=== PATIENT | male | born 1940 | race African-American/Black ===

== ENCOUNTER 2021-07-18 12:38 | Emergency (ER) | payer MEDICARE ==
[2021-07-18 12:46] VITALS: TEMP 98.3
--- NOTE | 2021-07-18 13:17 | ED ---
General Adult HPI - General Source: patient Mode of arrival: wheelchair Limitations: no limitations <Timmy Reese - Last Filed: 07/18/21 15:00> <Howie Da Silva - Last Filed: 07/19/21 00:31> - General Chief complaint: Chest Pain Stated complaint: Chest Pain Time Seen by Provider: 07/18/21 12:54 - History of Present Illness Initial comments: Dictation was produced using [employer] dictation software. please excuse any grammatical, word or spelling errors. Chief Complaint: 81-year-old male presents today with 2 days of chest pain History of Present Illness: She is a 1-year-old male presents to the emergency department today for chest pain. Patient states his pain is to his left anterior chest. States it's like a soreness. Patient reports that's worse when he lifts his arm up however it's there whenever he is at rest. No radiation down his extremity. No associate diaphoresis or nausea. Patient has extensive history of coronary artery disease. The ROS documented in this emergency department record has been reviewed and confirmed by me. Those systems with pertinent positive or negative responses have been documented in the HPI. All other systems are other negative and/or noncontributory. PHYSICAL EXAM: General Impression: Alert and oriented x3, not in acute distress HEENT: Normocephalic atraumatic, extra-ocular movements intact, pupils equal and reactive to light bilaterally, mucous membranes moist. Cardiovascular: Heart regular rate and rhythm Chest: Able to complete full sentences, no retractions, no tachypnea, pain not reproduced with palpation to the chest Abdomen: abdomen soft, non-tender, non-distended, no organomegaly Musculoskeletal: Pulses present and equal in all extremities, no peripheral edema Motor: no focal deficits noted Neurological: CN II-XII grossly intact, no focal motor or sensory deficits noted Skin: Intact with no visualized rashes Psych: Normal affect and mood ED course: 81-year-old male clinical presentation consistent with atypical chest pain with typical features. Vital signs upon arrival are within acceptable limits. EKG shows no signs of ischemia or infarction. Shoulder x-ray is unremarkable. Laboratory evaluation obtained. CBC and metabolic panel is unremarkable. Troponin is negative. EKG interpretation: Ventricular rate 52, sinus bradycardia, TN interval 154, QRS 70, QTc 43. No TN prolongation, no QTC prolongation, no ST or T-wave changes noted. Overall, this EKG is unremarkable Disposition options were discussed. She did not want to be admitted to observation for cardiac monitoring. Patient is agreeable for second troponin time at 4:15. Patient will be signed out to Dr. Da Silva. (Timmy Reese) - Related Data Home Medications Medication Instructions Recorded Confirmed cycloSPORINE [Restasis] 1 drop BOTH EYES BID 03/04/15 07/18/21 hydrALAZINE HCL [Apresoline] 50 mg PO BID 01/22/16 07/18/21 Ezetimibe [Zetia] 10 mg PO DAILY 07/18/21 07/18/21 HYDROcodone/APAP 7.5-325MG [[place] 1 tab PO Q12H PRN 07/18/21 07/18/21 7.5-325] timoloL maleate [timoloL maleate 1 drop BOTH EYES DAILY 07/18/21 07/18/21 0.5% Gel] Previous Rx's Medication Instructions Recorded Methocarbamol [Robaxin-750] 1,500 mg PO TID PRN 7 Days #42 07/18/21 tablet Allergies Allergy/AdvReac Type Severity Reaction Status Date / Time No Known Allergies Allergy Verified 07/18/21 13:46 Review of Systems ROS Other: All systems not noted in ROS Statement are negative. <Timmy Reese - Last Filed: 07/18/21 15:00> ROS Other: All systems not noted in ROS Statement are negative. <Howie Da Silva - Last Filed: 07/19/21 00:31> ROS Statement: Those systems with pertinent positive or pertinent negative responses have been documented in the HPI. Past Medical History Past Medical History: Coronary Artery Disease (CAD), Eye Disorder, Hypertension Additional Past Medical History / Comment(s): hiatal hernia, glaucoma History of Any Multi-Drug Resistant Organisms: None Reported Past Surgical History: Back Surgery, Bowel Resection, Coronary Bypass/CABG, Heart Catheterization, Hernia Repair Additional Past Surgical History / Comment(s): cataracts, back surgery x 3, 5-11-15 HEART CATH. Bowel resection for rupture Past Anesthesia/Blood Transfusion Reactions: No Reported Reaction Past Psychological History: No Psychological Hx Reported Smoking Status: Never smoker Past Alcohol Use History: None Reported Past Drug Use History: None Reported - Past Family History Father Family Medical History: Deep Vein Thrombosis (DVT) <Timmy Reese - Last Filed: 07/18/21 15:00> General Exam Limitations: no limitations <Timmy Reese - Last Filed: 07/18/21 15:00> Course Vital Signs 07/18/21 07/18/21 07/18/21 12:43 13:00 14:00 Temperature 98.3 F Pulse Rate 54 L 50 L 49 L Respiratory 20 18 18 Rate Blood Pressure 174/74 163/78 162/74 O2 Sat by Pulse 98 99 99 Oximetry 07/18/21 07/18/21 15:00 17:38 Temperature Pulse Rate 53 L 50 L Respiratory 18 18 Rate Blood Pressure 152/78 163/68 O2 Sat by Pulse 100 99 Oximetry Medical Decision Making - Lab Data Result diagrams: 07/18/21 13:17 07/18/21 13:17 <Timmy Reese - Last Filed: 07/18/21 15:00> - Lab Data Result diagrams: 07/18/21 13:17 07/18/21 13:17 <Howie Da Silva - Last Filed: 07/19/21 00:31> - Medical Decision Making Patient is signed out to me pending results of the second troponin. Patient's obtaining cardiac workup presented originally with chest pain and left arm pain 2 days. Initial cardiac workup revealed a negative troponin. Remainder the laboratory studies are unremarkable. EKG showed no signs of acute ischemia per prior physician. X-rays the shoulder and of the chest revealed no acute injury. Chest x-ray also revealed no acute cardiopulmonary process. Patient was stable for multiple hours in the department. He discussed with the patient that he can be admitted for cardiac evaluation or stay for a second troponin. He would like to remain in the department for second troponin discharged home at that is within normal limits. Troponin returned and it was negative. I evaluated the patient and he states his symptoms are somewhat improved. He is already on [place] at home for pain management. Due to his negative workup including 2 negat kiara troponins, I do believe it is safer to be discharged home at this time. He is I instructed him follow up with his PCP. He was in agreement this plan. I will provide the patient with a prescription for Robaxin. I instructed the patient to follow up with their PCP in the next 3 days. I explained that the patient should return to the emergency department if they experience any wor sening symptoms. Strict return precautions were discussed with the patient. The patient expressed understanding of these instructions. I answered all questions that the patient had. The patient was discharged home in fair condition with their prescriptions and follow up information. (Howie Da Silva) - Lab Data Lab Results 07/18/21 07/18/21 07/18/21 Range/Units 13:17 13:17 13:17 WBC 8.3 (3.8-10.6) k/uL RBC 4.54 (4.30-5.90) m/uL Hgb 12.9 L (13.0-17.5) gm/dL Hct 40.5 (39.0-53.0) % MCV 89.1 (80.0-100.0) fL MCH 28.4 (25.0-35.0) pg MCHC 31.9 (31.0-37.0) g/dL RDW 13.6 (11.5-15.5) % Plt Count 166 (150-450) k/uL MPV 8.3 Neutrophils % 73 % Lymphocytes % 13 % Monocytes % 10 % Eosinophils % 2 % Basophils % 0 % Neutrophils # 6.1 (1.3-7.7) k/uL Lymphocytes # 1.1 (1.0-4.8) k/uL Monocytes # 0.8 (0-1.0) k/uL Eosinophils # 0.1 (0-0.7) k/uL Basophils # 0.0 (0-0.2) k/uL Sodium 138 (137-145) mmol/L Potassium 4.3 (3.5-5.1) mmol/L Chloride 106 (98-107) mmol/L Carbon Dioxide 26 (22-30) mmol/L Anion Gap 6 mmol/L BUN 12 (9-20) mg/dL Creatinine 0.80 (0.66-1.25) mg/dL Est GFR (CKD-EPI)AfAm >90 (>60 ml/min/1.73 sqM) Est GFR (CKD-EPI)NonAf 84 (>60 ml/min/1.73 sqM) Glucose 120 H (74-99) mg/dL Calcium 9.3 (8.4-10.2) mg/dL Troponin I <0.012 (0.000-0.034) ng/mL 07/18/21 Range/Units 16:27 WBC (3.8-10.6) k/uL RBC (4.30-5.90) m/uL Hgb (13.0-17.5) gm/dL Hct (39.0-53.0) % MCV (80.0-100.0) fL MCH (25.0-35.0) pg MCHC (31.0-37.0) g/dL RDW (11.5-15.5) % Plt Count (150-450) k/uL MPV Neutrophils % % Lymphocytes % % Monocytes % % Eosinophils % % Basophils % % Neutrophils # (1.3-7.7) k/uL Lymphocytes # (1.0-4.8) k/uL Monocytes # (0-1.0) k/uL Eosinophils # (0-0.7) k/uL Basophils # (0-0.2) k/uL Sodium (137-145) mmol/L Potassium (3.5-5.1) mmol/L Chloride (98-107) mmol/L Carbon Dioxide (22-30) mmol/L Anion Gap mmol/L BUN (9-20) mg/dL Creatinine (0.66-1.25) mg/dL Est GFR (CKD-EPI)AfAm (>60 ml/min/1.73 sqM) Est GFR (CKD-EPI)NonAf (>60 ml/min/1.73 sqM) Glucose (74-99) mg/dL Calcium (8.4-10.2) mg/dL Troponin I <0.012 (0.000-0.034) ng/mL Disposition <Timmy Reese - Last Filed: 07/18/21 15:00> Is patient prescribed a controlled substance at d/c from ED?: No <Howie Da Silva - Last Filed: 07/19/21 00:31> Clinical Impression: Chest pain of unknown etiology Disposition: HOME SELF-CARE Condition: Fair Instructions (If sedation given, give patient instructions): Chest Pain (ED) Prescriptions: Methocarbamol [Robaxin-750] 1,500 mg PO TID PRN 7 Days #42 tablet PRN Reason: Pain Referrals: Jeb Reagan MD [Primary Care Provider] - 1-2 days
[2021-07-18 13:30] LABS: Basophils % (A) 0 %; Eosinophils # (A) 0.1 k/uL (0-0.7); Eosinophils % (A) 2 %; HCT 40.5 % (39.0-53.0); HGB 12.9 gm/dL (13.0-17.5); Lymphocytes # (A) 1.1 k/uL (1.0-4.8); Lymphocytes % (A) 13 %; MCH 28.4 pg (25.0-35.0); MCHC 31.9 g/dL (31.0-37.0); MCV 89.1 fL (80.0-100.0); Mean Platelet Volume 8.3; Monocytes # (A) 0.8 k/uL (0-1.0); Monocytes % (A) 10 %; Neutrophils # (A) 6.1 k/uL (1.3-7.7); Neutrophils % (A) 73 %; Platelet Count 166 k/uL (150-450); RBC 4.54 m/uL (4.30-5.90); RDW 13.6 % (11.5-15.5); WBC 8.3 k/uL (3.8-10.6)
--- NOTE | 2021-07-18 13:33 | XR ---
EXAMINATION TYPE: XR chest 2V DATE OF EXAM: 07/18/2021 COMPARISON: 03/11/15 HISTORY: Shortness of breath TECHNIQUE: Frontal and lateral views of the chest are obtained. FINDINGS: Scattered senescent parenchymal changes noted. Hyperinflation compatible with COPD. No evidence for infiltrate. No evidence for atelectasis. Heart size is stable. Mediastinal structures are stable and grossly unremarkable. No evidence for hilar prominence. Degenerative changes dorsal spine. IMPRESSION: 1. No evidence for acute pulmonary disease.
[2021-07-18 13:50] LABS: African American GFR (CKD) >90 (>60 ml/min/1.73 sqM); Anion Gap 6 mmol/L; Blood Urea Nitrogen 12 mg/dL (9-20); Calcium 9.3 mg/dL (8.4-10.2); Carbon Dioxide 26 mmol/L (22-30); Chloride 106 mmol/L (98-107); Glucose 120 mg/dL (74-99); Non-African American GFR(CKD) 84 (>60 ml/min/1.73 sqM); Potassium 4.3 mmol/L (3.5-5.1); Sodium 138 mmol/L (137-145)
--- NOTE | 2021-07-18 14:28 | XR ---
EXAMINATION TYPE: XR shoulder complete LT DATE OF EXAM: 07/18/2021 CLINICAL HISTORY: pain COMPARISON: NONE TECHNIQUE: Three views of the left shoulder are obtained. FINDINGS: There is no acute fracture/dislocation evident. The acromioclavicular and glenohumeral edward int spaces appear within normal limits. The visualized ribs are intact and unremarkable. IMPRESSION: 1. There is no acute fracture or dislocation. ICD 10 NO FRACTURE, INITIAL EVALUATION
[2021-07-18 15:40] VITALS: RESP 18
[2021-07-18 17:41] VITALS: BP 163/68; PULSE 50
== END 2021-07-18 17:40 | disposition home or self-care (01) ==
LOC: EC 12:38
DX: R07.89 Other chest pain (principal); I10 Essential (primary) hypertension; Z79.899 Other long term (current) drug therapy
CPT/HCPCS: 36415; 71046; 80048; 84484; 85025; 93005; 99285

== ENCOUNTER → 2022-03-06 | Outpatient (CLI) | payer MEDICARE ==
--- NOTE | 2022-03-09 08:47 | MR ---
EXAMINATION TYPE: MR Prostate wo/w con DATE OF EXAM: 03/06/2022 COMPARISON: None. 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 Approxima tely 5% of tissue measuring less than 1 mm in length. TECHNIQUE: Examination was performed using a 3T MRI without an endorectal coil. Multiparametric imaging was perf ormed with T2 mutliplanar sequences, axial diffusion weighted imaging and dynamic contrast enhanced i maging, utilizing 7.5 mL intravenous Gadavist gadolinium contrast. FINDINGS: Exam is suboptimal PROSTATE VOLUME: 5.2 cm SI x 3.7 cm AP x 5.5 cm LR Vol= 55.4 cc Predicted PSA equals 6.648 PSA DENSITY: 0.13 ng/ml/cc Enlarged prostate gland is present. The peripheral zone shows no areas of significant diminished sign al and ADC mapping or increased signal on diffusion-weighted imaging. Linear increased T1 signal in t he right peripheral zone mid segment towards apex axial image 18 is favored artifact. T2-weighted sheila ges fairly unremarkable. Transitional zone shows marked heterogeneity with more heterogeneous diminis hed signal having obscured margins throughout the right aspect of the prostate versus left side invol ving the mid and apical segments and the anterior central and posterior levels. No significant increa sed signal or restricted diffusion on diffusion-weighted imaging. Capsule is maintained. Seminal vesicles are within normal limits. Urinary bladder shows no intralumin al mass or wall thickening. No pelvic ascites. Visualized osseous structures are intact. Moderate wal l thickening in the visualized sigmoid colon is nonspecific finding, could be product of poor distent ion. Other etiologies not excluded. Correlate clinically. IMPRESSION: Enlarged prostate. Nonspecific findings in the right prostate transitional zone.. Highest Assessment Category: 3 MRI Stage: T1c N0 M0 based on review of pelvic images. False negative rates for MRI range from 5-20% depending on risk profile. Assessment Categories: 1 ? Very low (clinically significant cancer is highly unlikely to be present) 2 ? Low (clinically significant cancer is unlikely to be present) 3 ? Intermediate (the presence of clinically significant cancer is equivocal) 4 ? High (clinically significant cancer is likely to be present) 5 ? Very high (clinically significant cancer is highly likely to be present)
== END | disposition home or self-care (01) ==
LOC: RADMRIMAIN 07:45
PROVIDERS: ATTEND Urology
DX: C61 Malignant neoplasm of prostate (principal)
CPT/HCPCS: 72197; A9585

== ENCOUNTER → 2023-04-22 | Outpatient (CLI) | payer MEDICARE ==
[2023-04-22 14:39] VITALS: BP 173/78; PULSE 55; RESP 18; TEMP 98
--- NOTE | 2023-04-22 15:28 | P.PAINPG ---
PQRS Measure Charge Sheet Comment: HISTORY OF PRESENT ILLNESS: 82 yr old male as a referral from Dr Russ presents today w severe and chronic LBP secondary to R Sacroiliitis for evaluation. Pt states pain level is provoked at 6 /10 in intensity, constant, localized in the R lower lumbar spine, sharp in character w shooting pain towards the R buttocks. Pain is provoked by repositioning. Pain is alleviated by massage weekly x 4 wks in Mar 2023, heat, ice, medications ([place]) and rest. Oswetry Pain Score of 14. PMH: OA, CAD, Eye Disorder, HTN, Hiatal Hernia, Glaucoma PSH: Hiatal Hernia Repair, Lumbar Surgery x3, Cardiac Cath (2014) SH: 26 pack/ yr former tobacco user (Quit 1985), No ETOH abuse, No illicit drug use FH: Fa- DVT All: See list Meds: See list REVIEW OF ORGAN SYSTEMS: CONSTITUTIONAL: No fevers or chills. No recent weight loss. NEUROLOGICAL: + numbness and tingling along the distal extremities. No seizure disorders or headaches. MUSCULOSKELETAL: + pain PSYCHIATRIC: Denies current depression or suicidal thoughts. Physical Examinations : Constitutional : Cooperative , not in acute distress . Neurologic : Cranial nerve II to XII intact. No focal neurological deficits. Psychiatric : alert & oriented x 3. Matching mood & appropriate affect. Judgment & insight intact. Musculoskeletal : Cervical Spine Motor strength in the deltoid and biceps: Normal right side. Normal Left side Motor strength biceps and the wrist extensors: Normal right side . Normal left side Motor strength in the triceps muscle: Normal right side. Normal left side Deep tendon reflexes: Normal at the biceps. Normal at Brachioradialis. Normal at triceps Vertebral body tenderness to deep palpation over Cervical facet loading test: positive bilaterally Spurling test: positive bilaterally Neck distraction test: positive bilaterally Bruce sign: positive bilaterally Lumbar spine Motor strength lower extremities ,thigh and legs 5/5 Right side , 5/5 Left side Deep tendon reflexes : Normal Knee Jerk. Normal Ankle Jerk Vertebral body tenderness over Gabriel Test positive Lumbar facet Loading Test: positive Right / positive Left Range of motion of the lumbar spine Flexion 30 degrees, extension 10 degrees Straight Leg Raise test: Left/ Right positive at degree Renetta test: positive right / positive left. Severe tenderness over the Sacroiliac joint on the Right / Left sides Gaenslen test: positive on R Seated flexion test: positive bilaterally. Sacral spine : Severe tenderness over the Sacroiliac joint: right side / left side Range of motion: Flexion of the lumbar spine <60 degrees Range of motion: Extension of the lumbar spine <20 degrees Gaenslen's Test on R Renetta test: positive right side / left side R positive Thigh Thrust Test Sacral Thrust Test Imaging: None on file Assessment/ Plan : R Sacroiliitis Recommendation of R SI injection. May need a series for optimal pain relief. Risks, benefits of procedure discussed and patient verbalized understanding. Admits to aspirin or anti- coagulant use or medical history of diabetes. Protocol for discontinuation/ continuation of medications roberto procedure discussed. Minimal anesthesia provided, if clinically indicated, consisting of Versed and Fentanyl. All questions answered. I have spent greater than 30 minutes on patient care today. Dr Badillo was available by phone for the evaluation of this patient. The time was used to review the medical records including relevant urine studies and Prescription history (MAPs), review of the available imaging, evaluation and examination of the patient, coordination of care with the medical staff and if applicable referring physicians, as well as creation of the medical record PQRS Narrative: Smoking Status Former smoker Home Medications: Ambulatory Orders cycloSPORINE [Restasis] 1 drop BOTH EYES BID 03/04/15 hydrALAZINE HCL [Apresoline] 50 mg PO BID 01/22/16 Ezetimibe [Zetia] 10 mg PO DAILY 07/18/21 HYDROcodone/APAP 7.5-325MG [[place] 7.5-325] 1 tab PO Q12H PRN 07/18/21 methocarbamoL [Robaxin-750] 1,500 mg PO TID PRN 7 Days #42 tablet 07/18/21 timoloL maleate [timoloL maleate 0.5% Gel] 1 drop BOTH EYES DAILY 07/18/21 Controlled Substance Measures - Controlled Substance Measures Is patient prescribed a controlled substance at discharge?: No
== END ==
LOC: PNWHC3 12:48
PROVIDERS: ATTEND Specialist
DX: M46.1 Sacroiliitis, not elsewhere classified (principal); G89.29 Other chronic pain; M19.90 Unspecified osteoarthritis, unspecified site; I25.10 Atherosclerotic heart disease of native coronary artery without angina pectoris; I10 Essential (primary) hypertension; Z86.69 Personal history of other diseases of the nervous system and sense organs; Z87.19 Personal history of other diseases of the digestive system; Z87.891 Personal history of nicotine dependence
CPT/HCPCS: 99211

== ENCOUNTER → 2023-06-03 | Outpatient (CLI) | payer MEDICARE ==
[2023-06-03 13:23] VITALS: BP 171/78; PULSE 49; RESP 16; TEMP 97.7
--- NOTE | 2023-06-03 14:34 | P.PAINPG ---
PQRS Measure Charge Sheet Comment: HISTORY OF PRESENT ILLNESS: 82 yr old male presents today w severe and chronic LBP secondary to R Sacroiliitis for evaluation s/p R SI injection. Pt states he experienced 0% pain relief s/p procedure. Pt states pain level is provoked at 6 /10 in intensity, constant, localized in the R lower lumbar spine, sharp in character w shooting pain towards the R buttocks. Pain is provoked by repositioning. Pain is alleviated by massage weekly x 4 wks in Mar 2023, heat, ice, medications ([place]) and rest. Oswestry Pain Score of 14. Interventional procedures include R SI x1 Medications include [place] REVIEW OF ORGAN SYSTEMS: CONSTITUTIONAL: No fevers or chills. No recent weight loss. NEUROLOGICAL: + numbness and tingling along the distal extremities. No seizure disorders or headaches. MUSCULOSKELETAL: + pain PSYCHIATRIC: Denies current depression or suicidal thoughts. Physical Examinations : Constitutional : Cooperative , not in acute distress . Neurologic : Cranial nerve II to XII intact. No focal neurological deficits. Psychiatric : alert & oriented x 3. Matching mood & appropriate affect. Judgment & insight intact. Musculoskeletal : Cervical Spine Motor strength in the deltoid and biceps: Normal right side. Normal Left side Motor strength biceps and the wrist extensors: Normal right side . Normal left side Motor strength in the triceps muscle: Normal right side. Normal left side Deep tendon reflexes: Normal at the biceps. Normal at Brachioradialis. Normal at triceps Vertebral body tenderness to deep palpation over Cervical facet loading test: positive bilaterally Spurling test: positive bilaterally Neck distraction test: positive bilaterally Bruce sign: positive bilaterally Lumbar spine Motor strength lower extremities ,thigh and legs 5/5 Right side , 5/5 Left side Deep tendon reflexes : Normal Knee Jerk. Normal Ankle Jerk Vertebral body tenderness over L5 Gabriel Test positive on R L5-S1 Lumbar facet Loading Test: positive Right / positive Left Range of motion of the lumbar spine Flexion 30 degrees, extension 10 degrees Straight Leg Raise test: Left/ Right positive at degree Renetta test: positive right / positive left. Severe tenderness over the Sacroiliac joint on the Right / Left sides Gaenslen test: positive on R Seated flexion test: positive bilaterally. Sacral spine : Severe tenderness over the Sacroiliac joint: right side / left side Range of motion: Flexion of the lumbar spine <60 degrees Range of motion: Extension of the lumbar spine <20 degrees Gaenslen's Test on R Renetta test: positive right side / left side R positive Thigh Thrust Test Sacral Thrust Test Imaging: None on file Assessment/ Plan : R Sacroiliitis, Post laminectomy syndrome Recommendation of R TFESI L5-S1 #1. May need a series for optimal pain relief. Risks, benefits of procedure discussed and patient verbalized understanding. Admits to aspirin or anti- coagulant use or medical history of diabetes. Protocol for discontinuation/ continuation of medications roberto procedure discussed. Minimal anesthesia provided, if clinically indicated, consisting of Versed and Fentanyl. All questions answered. I have spent greater than 30 minutes on patient care today. Dr Badillo was available by phone for the evaluation of this patient. The time was used to review the medical records including relevant urine studies and Prescription history (MAPs), review of the available imaging, evaluation and examination of the patient, coordination of care with the medical staff and if applicable r eferring physicians, as well as creation of the medical record PQRS Narrative: Smoking Status Former smoker Hx Alcohol Use ([facility]) No Home Medications: Ambulatory Orders cycloSPORINE [Restasis] 1 drop BOTH EYES BID 03/04/15 hydrALAZINE HCL [Apresoline] 50 mg PO BID 01/22/16 HYDROcodone/APAP 7.5-325MG [[place] 7.5-325] 1 tab PO Q12H PRN 07/18/21 timoloL maleate [timoloL maleate 0.5% Gel] 1 drop BOTH EYES DAILY 07/18/21 Controlled Substance Measures - Controlled Substance Measures Is patient prescribed a controlled substance at discharge?: No
== END ==
LOC: PNWHC3 12:41
PROVIDERS: ATTEND Specialist
DX: M46.1 Sacroiliitis, not elsewhere classified (principal); M96.1 Postlaminectomy syndrome, not elsewhere classified; Z87.891 Personal history of nicotine dependence
CPT/HCPCS: 99211

== ENCOUNTER 2023-06-22 09:41 | Day surgery (SDC) | payer MEDICARE ==
[2023-06-17 11:01] VITALS: BMI 25.0
[2023-06-22] MEDS ORDERED: LACTATED RINGERS 1,000 ML IV SCH (09:46)
[2023-06-22 09:54] VITALS: PULSE 53; RESP 16; TEMP 97.6
[2023-06-22] MEDS ORDERED: methylPREDNISolone ACETATE 40 MG/ML 1 ML VIAL ONE (10:26)
[2023-06-22] MEDS ORDERED: IOPAMIDOL M200 10 ML VIAL ONE (10:26)
--- NOTE | 2023-06-22 10:42 | P.PCN ---
Date of Procedure: 06/22/23 Procedure(s) Performed: PREOPERATIVE DIAGNOSIS: 1-Lumbar radiculopathy . 2-lumbar postlaminectomy pain syndrome POSTOPERATIVE DIAGNOSIS: 1-lumbar radiculopathy. 2-lumbar postlaminectomy pain syndrome PROCEDURE 1. Transforaminal epidural steroid injection under fluoroscopic guidance at right level. (Fluoroscopy images stored on file in the radiology Department ) 2. Lumbar epidurogram . ANESTHESIA: Local with 1% lidocaine 3 ml. EBL: Minimal PROCEDURE INDICATION: The patient with low back pain and radiculopathy symptoms unresponsive to conservative treatment. PROCEDURE DESCRIPTION / TECHNIQUE: The patient was seen and identified in the preoperative area. Risks, benefits, complications, and alternatives were discussed with the patient. The patient agreed to proceed with the procedure and signed the consent. IV was started, and vital signs were stable. Patient was taken to the OR and time out was completed. The patient was placed in the prone position on procedure table and a pillow was placed under the abdomen to reduce lumbar lordosis. The lumbosacral area was prepped and draped in the usual sterile fashion. Critical pause was taken. Vital signs were closely monitored during the procedure. Using oblique fluoroscopy, the chin of the `BirgitReginald dog at Right L5-S1 level was identified, and the skin and deeper tissues just below was localized with 1% lidocaine. Subsequently, a 22-gauge 3.5-inch spinal needle was advanced under a tunneled view fluoroscopic guidance just underneath the chin of the `Rubyy dog at the right L5-S1 Under lateral fluoroscopy, the needle was then advanced to the posterior border of the interforaminal space. After negative aspiration of CSF and blood and with no paresthesias, 1 mL Isovue 200 contrast dye was injected excellent epidurogram and outlining of the nerve root Subsequently, 3 mL of block solution containing 40 mg Depo-Medrol and 2 mL of 0.9% normal saline PF was injected. Needle was removed . At the end of the procedure, skin was cleansed, and bandages were applied. COMPLICATIONS:none DISPOSITION / PLANS: The patient was placed in a supine position and transferred to the recovery area in a stable condition for observation. There was no evidence of lower extremity motor or sensory deficit after the procedure. Patient was discharged from the recovery room after meeting discharge criteria. Home discharge instructions were given to the patient by the staff. The patient was reexamined prior to discharge.
[2023-06-22 10:45] VITALS: BP 152/66
--- NOTE | 2023-06-22 10:53 | FL ---
Intraoperative/procedural fluoroscopic services were provided. Total fluoroscopy time is 12.9 seconds with a total of 1 submitted images to PACS. Please see the operative/procedural note for further det ails. DAP: [id number] mGym2
== END 2023-06-22 10:58 ==
LOC: ORPAIN 09:41
PROVIDERS: ATTEND Specialist
DX: M54.16 Radiculopathy, lumbar region (principal); M96.1 Postlaminectomy syndrome, not elsewhere classified
CPT/HCPCS: 64483; J1030; Q9966

== ENCOUNTER → 2023-07-15 | Outpatient (CLI) | payer MEDICARE ==
[2023-07-15 13:40] VITALS: BP 150/68; PULSE 53; RESP 16; TEMP 98.3
--- NOTE | 2023-07-15 13:55 | P.PAINPG ---
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 Pt states he experienced 0% pain relief s/p procedure. Pt states pain level is provoked at 6 /10 in intensity, constant, localized in the R lower lumbar spine where it meets the tailbone, sharp in character w shooting pain towards the R buttocks. Pain is provoked by repositioning. Pain is alleviated by massage weekly x 4 wks in Mar 2023, heat, ice, medications, topical and rest. Oswestry Axial Pain Score of 15. Interventional procedures include R SI x1, R TFESI L5-S1 #1 Medications include [place], Biofreeze gel REVIEW OF ORGAN SYSTEMS: CONSTITUTIONAL: No fevers or chills. No recent weight loss. NEUROLOGICAL: + numbness and tingling along the distal extremities. No seizure disorders or headaches. MUSCULOSKELETAL: + pain PSYCHIATRIC: Denies current depression or suicidal thoughts. Physical Examinations : Constitutional : Cooperative , not in acute distress . Neurologic : Cranial nerve II to XII intact. No focal neurological deficits. Psychiatric : alert & oriented x 3. Matching mood & appropriate affect. Judgment & insight intact. Musculoskeletal : Cervical Spine Motor strength in the deltoid and giselle ps: Normal right side. Normal Left side Motor strength biceps and the wrist extensors: Normal right side . Normal left side Motor strength in the triceps muscle: Normal right side. Normal left side Deep tendon reflexes: Normal at the biceps. Normal at Brachioradialis. Normal at triceps Vertebral body tenderness to deep palpation over Cervical facet loading test: positive bilaterally Spurling test: positive bilaterally Neck distraction test: positive bilaterally Bruce sign: positive bilaterally Lumbar spine Motor strength lower extremities ,thigh and legs 5/5 Right side , 5/5 Left side Deep tendon reflexes : Normal Knee Jerk. Normal Ankle Jerk Vertebral body tenderness L5 Gabriel Test positive Lumbar facet Loading Test: positive Right / positive Left Range of motion of the lumbar spine Flexion 30 degrees, extension 10 degrees Straight Leg Raise test: Left/ Right positive at degree Renetta test: positive right / positive left. Severe tenderness over the Sacroiliac joint on the Right / Left sides Gaenslen test: positive on R Seated flexion test: positive bilaterally. Sacral spine : Severe tenderness over the Sacroiliac joint: right side / left side Range of motion: Flexion of the lumbar spine <60 degrees Range of motion: Extension of the lumbar spine <20 degrees Gaenslen's Test on R Renetta test: positive right side / left side R positive Thigh Thrust Test Sacral Thrust Test Imaging: None on file Assessment/ Plan : R Sacroiliitis, Post laminectomy syndrome Recommendation of Caudal KATE w Lysis. May need a series of injections for optimal pain relief. Risks, benefits of procedure discussed and patient verbalized understanding. Admits to aspirin or anti- coagulant use or medical history of diabetes. Protocol for discontinuation/ continuation of medications roberto procedure discussed. Minimal anesthesia provided, if clinically indicated, consisting of Versed and Fentanyl. Valium 5mg #2 NR . Use, side effects, adverse reactions and safe storage discussed. Pt verbalized understanding. All questions answered. I have spent greater than 30 minutes on patient care today. Dr Badillo was available by phone for the evaluation of this patient. The time was used to review the medical records including relevant urine studies and Prescription history (MAPs), review of the available imaging, evaluation and examination of the patient, coordination of care with the medical staff and if applicable referring physicians, as well as creation of the medical record PQRS Narrative: Smoking Status Former smoker Hx Alcohol Use (MH) No Home Medications: Ambulatory Orders cycloSPORINE [Restasis] 1 drop BOTH EYES BID 03/04/15 hydrALAZINE HCL [Apresoline] 50 mg PO BID 01/22/16 HYDROcodone/APAP 7.5-325MG [[place] 7.5-325] 1 tab PO Q12H PRN 07/18/21 timoloL maleate [timoloL maleate 0.5% Gel] 1 drop BOTH EYES DAILY 07/18/21 diazePAM [Valium] 5 mg PO DAILY PRN 1 Days #2 tab 07/15/23 Controlled Substance Measures - Controlled Substance Measures Is patient prescribed a controlled substance at discharge?: Yes When asked, does pt state using other controlled substances?: No If prescribed controlled substance>3 days was MAPS reviewed?: Prescribed <3 Days
== END ==
LOC: PNWHC3 12:40
PROVIDERS: ATTEND Specialist
DX: M96.1 Postlaminectomy syndrome, not elsewhere classified (principal); M46.1 Sacroiliitis, not elsewhere classified; Z87.891 Personal history of nicotine dependence
CPT/HCPCS: 99211

== ENCOUNTER 2023-07-29 12:23 | Day surgery (SDC) | payer MEDICARE ==
[~2023-07-29 12:23] MED LIST: LACTATED RINGERS 1,000 ML IV SCH
[2023-07-29 13:36] VITALS: TEMP 97.2
[2023-07-29] MEDS ORDERED: TRIAMCINOLONE ACETONIDE 40 MG/ML 1 ML VIAL ONE (14:14)
[2023-07-29] MEDS ORDERED: ROPIVACAINE 5MG/ML 20ML VIAL ONE (14:14)
[2023-07-29] MEDS ORDERED: IOPAMIDOL M200 10 ML VIAL ONE (14:14)
--- NOTE | 2023-07-29 14:27 | P.PCN ---
Date of Procedure: 07/29/23 Surgeon: Antonina Turner Pathology: none sent Condition: stable Disposition: PACU Description of Procedure: PREOP DIAGNOSIS: Lumbar postlaminectomy syndrome. POSTOP DIAGNOSIS: Lumbar postlaminectomy syndrome. PROCEDURE: Caudal epidural steroid injection with epidurolysis and epidurogram under fluoroscopic guidance ANESTHESIA: Local with 1% lidocaine EBL: Minimal. PROCEDURE INDICATION: The patient with post-laminectomy syndrome with low back pain and radiculopathy radiating down in both legs, here for a caudal epidural steroid injection with epidurolysis. PROCEDURE DESCRIPTION: The patient was seen in the preoperative holding area consent was obtained then he was brought into the procedure room and placed in prone position. Skin was prepped with ChloraPrep and draped in a sterile manner. Lidocaine 1% was used to numb the skin up at the target point that was chosen as follows: The lateral view of fluoroscopy was used to identify the sacral hiatus and then after localizing the skin with lidocaine 1% I used 18- gauge epidural needle with a plastic sheath to go through the sacral hiatus and into the sacral canal and then injected 1 mL of Omnipaque for verification of needle tip position. After that the metal core of the needle was taken out and the plastic sheath was kept in the sacral canal. Then Racz catheter was introduced through the plastic sheath and into the epidural space at the sacral canal using the AP view of fluoroscopy up to L5-S1 level then I injected 2 MLS of Omnipaque which showed spread in the epidural space and after few back and forth movements of the Racz catheter I injected 40 mg of Kenalog +2 MLS of Ropivacaine 0.5% +5 MLS of preservative-free normal saline to a total volume of 7 MLS in the epidural space. Patient tolerated procedure well. A copy of the needle placement x-ray was saved to the C-arm machine. COMPLICATIONS: None. DISPOSITION / PLANS: The patient was placed in a supine position and transferred to the recovery area in a stable condition for observation and was discharged from the recovery room after meeting discharge criteria. Home discharge instructions given to the patient by the staff. The patient was reexamined prior to discharge. The patient will schedule a follow up in the clinic in 2-4 weeks.
[2023-07-29 14:50] VITALS: BP 148/78; PULSE 78; RESP 16
--- NOTE | 2023-07-29 19:32 | FL ---
EXAMINATION TYPE: FL guided pain mgmt statistic DATE OF EXAM: 07/29/2023 FLUOROSCOPY Caudal epidural steroid inj, fl time 37.9 sec, dap [id number] mGycm2. 5 images.
== END 2023-07-29 14:49 | disposition home or self-care (01) ==
LOC: ORPAIN 12:23
PROVIDERS: ATTEND Anesthesiology
DX: M96.1 Postlaminectomy syndrome, not elsewhere classified (principal)
CPT/HCPCS: 62264; J3301; Q9966; J2795

== ENCOUNTER → 2023-08-23 | Outpatient (CLI) | payer MEDICARE ==
--- NOTE | 2023-08-23 13:19 | P.PN ---
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 Pt states he experienced 0% pain relief s/p procedure. Pt states pain level is provoked at 6 /10 in intensity, constant, localized in the R lower lumbar spine where it meets the tailbone, sharp in character w shooting pain towards the R buttocks. Pain is provoked by repositioning. Pain is alleviated by massage weekly x 4 wks in Mar 2023, heat, ice, medications, topical and rest. Oswestry Axial Pain Score of 15. Interventional procedures include R SI x1, R TFESI L5-S1 #1, caudal epidural steroid injection with lysis of epidural adhesions Medications include [place], Biofreeze gel REVIEW OF ORGAN SYSTEMS: CONSTITUTIONAL: No fevers or chills. No recent weight lo ss. NEUROLOGICAL: + numbness and tingling along the distal extremities. No seizure disorders or headaches. MUSCULOSKELETAL: + pain PSYCHIATRIC: Denies current depression or suicidal thoughts. Physical Examinations : Constitutional : Cooperative , not in acute distress . Neurologic : Cranial nerve II to XII intact. No focal neurological deficits. Psychiatric : alert & oriented x 3. Matching mood & appropriate affect. Judgment & insight intact. Musculoskeletal : Cervical Spine Motor strength in the deltoid and biceps: Normal right side. Normal Left side Motor strength biceps and the wrist e xtensors: Normal right side . Normal left side Motor strength in the triceps muscle: Normal right side. Normal left side Deep tendon reflexes: Normal at the biceps. Normal at Brachioradialis. Normal at triceps Vertebral body tenderness to deep palpation over Cervical facet loading test: positive bilaterally Spurling test: positive bilaterally Neck distraction test: positive bilaterally Bruce sign: positive bilaterally Lumbar spine Motor strength lower extremities ,thigh and legs 5/5 Right side , 5/5 Left side Deep tendon reflexes : Normal Knee Jerk. Normal Ankle Jerk Vertebral body tenderness L5 Gabriel Test positive Lumbar facet Loading Test: positive Right / positive Left Range of motion of the lumbar spine Flexion 30 degrees, extension 10 degrees Straight Leg Raise test: Left/ Right positive at degree Renetta test: positive right / positive left. Severe tenderness over the Sacroiliac joint on the Right / Left sides Gaenslen test: positive on R Seated flexion test: positive bilaterally. Sacral spine : tenderness over the Sacroiliac joint: right side / left side Range of motion: Flexion of the lumbar spine <60 degrees Range of motion: Extension of the lumbar spine <20 degrees Gaenslen's Test on R Renetta test: positive right side / left side R positive Thigh Thrust Test Sacral Thrust Test Imaging: MRI of the lumbar spine reviewed Assessment/ Plan : R Sacroiliitis, Post laminectomy syndrome, lumbar spondylosis with lumbar facet arthropathy Patient had no benefit from transforaminal epidural steroid injection, and no benefit from caudal epidural steroid injection with lysis of epidural adhesions Patient will be good candidate to have diagnostic medial branch block lumbar area at L4 5 and L5-S1 PQRS Narrative: Smoking Status Former smoker Hx Alcohol Use (MH) No Home Medications: Ambulatory Orders cycloSPORINE [Restasis] 1 drop BOTH EYES BID 03/04/15 hydrALAZINE HCL [Apresoline] 50 mg PO BID 01/22/16 HYDROcodone/APAP 7.5-325MG [[place] 7.5-325] 1 tab PO Q12H PRN 07/18/21 timoloL maleate [timoloL maleate 0.5% Gel] 1 drop BOTH EYES DAILY 07/18/21 diazePAM [Valium] 5 mg PO DAILY PRN 1 Days #2 tab 07/15/23 Controlled Substance Measures - Controlled Substance Measures Is patient prescribed a controlled substance at discharge?: Yes When asked, does pt state using other controlled substances?: No If prescribed controlled substance>3 days was MAPS reviewed?: Prescribed <3 Days
[2023-08-23 14:01] VITALS: BP 126/72; PULSE 62; RESP 13; TEMP 98.2
== END ==
LOC: PNWHC3 12:34
PROVIDERS: ATTEND Specialist
DX: M46.1 Sacroiliitis, not elsewhere classified (principal); M96.1 Postlaminectomy syndrome, not elsewhere classified; M47.816 Spondylosis without myelopathy or radiculopathy, lumbar region; Z87.891 Personal history of nicotine dependence
CPT/HCPCS: 99211

== ENCOUNTER 2023-09-10 09:03 | Day surgery (SDC) | payer MEDICARE ==
[2023-09-09 09:09] VITALS: BMI 25.0
[2023-09-10] MEDS ORDERED: LACTATED RINGERS 1,000 ML IV ONE (09:14)
[2023-09-10 09:36] VITALS: TEMP 97.4
[2023-09-10] MEDS ORDERED: fentaNYL (PF) 50 MCG/ML 2 ML AMP ONE (09:48)
[2023-09-10] MEDS ORDERED: ROPIVACAINE 5MG/ML 20ML VIAL ONE (09:52)
[2023-09-10] MEDS ORDERED: methylPREDNISolone ACETATE 40 MG/ML 1 ML VIAL ONE (09:52)
[2023-09-10] MEDS ORDERED: LACTATED RINGERS 1,000 ML IV SCH (10:03)
--- NOTE | 2023-09-10 10:04 | P.PCN ---
Date of Procedure: 09/10/23 Procedure(s) Performed: PREOPERATIVE DIAGNOSIS : 1- Lumbar spondylosis with Facet Arthropathy without myelopathy . 2- Lumber degenerative disc disease POSTOPERATIVE DIAGNOSIS: 1- Lumbar spondylosis with Facet Arthropathy without myelopathy . 2- Lumber degenerative disc disease PROCEDURE: Diagnostic bilateral L3 , L4 , and L5 medial branch block under fluoroscopy guidance(fluoroscopy images available in the radiology Department ) ( To target the facet joint between Bilateral L4-5 , and L5-S1 )#1ST ANESTHESIA:, Monitored anesthesia care as per anesthesia department. EBL: Minimal COMPLICATION: None PROCEDURE INDICATION: Chronic low back pain secondary to Facet arthropathy unresponsive to conservative treatment. PROCEDURE DESCRIPTION: the patient was seen and identified in the preop holding area , risks and benefits and possible complications of the procedure and alternative were discussed with the patient, and the patient agreed to proceed with the procedure and signed the consent and vital signs monitored during the procedure and fluoroscopy was used to maximize the benefit and accuracy of the needle placement, and sedation was given to decrease patient anxiety, patient was taken to the procedure room and placed in prone position vital signs monitored in the back prepped with chlorhexidine X3 then under strict sterile technique using a right oblique fluoroscopy ,the junction of the transverse process and the superior articulating process of the right L3 , L4 , and L5 vertebra which corresponding to the fluoroscopy image of the eye of the Reginald dog on the block side for the medial branches and subsequently , after local infiltration of skin and subcu tissuies with Ropivacaine 0.5 % , one mL at each level ,then 22-gauge Quincke-type needles , 3 needle was used , each one of them placed at the junction of the base of the transverse process and the superior articular process at the appropriate level, and the needle was advanced until the periosteum contacted, needle placement confirmed with AP oblique and lateral view and after appropriate needle placement confirmed, and after negative aspiration for heme and CSF and there was no paresthesia 1-1/2 mL of Ropivacaine 0.5% mixed with 20 mg Depo-Medrol , then half mL injected at each level after negative aspiration the needle subsequently removed and the same procedure repeated for the left side at left side at L3 , L4 and L5 levels. At the end of the procedure and the needles removed and a bandage applied after the skin was cleaned the cleaning solution patient taken to recovery room in stable condition and monitors in the recovery room for 20-30 minutes and discharged home in stable condition after discharge criteria met and patient will follow up with the pain clinic in 2-4 weeks
[2023-09-10] MEDS ORDERED: IV FLUID CONTINUATION 1,000 ML IV ONE (10:06)
[2023-09-10 10:55] VITALS: BP 163/75; PULSE 53; RESP 16
--- NOTE | 2023-09-10 11:40 | FL ---
Intraoperative/procedural fluoroscopic services were provided. Total fluoroscopy time is 12 point sec onds with a total of 5 submitted images to PACS. Please see the operative/procedural note for further details. DAP: [id number] mGym2
== END 2023-09-10 10:36 | disposition home or self-care (01) ==
LOC: ORPAIN 09:03
PROVIDERS: ATTEND Specialist
DX: M47.816 Spondylosis without myelopathy or radiculopathy, lumbar region (principal); M51.36 Other intervertebral disc degeneration, lumbar region; G89.29 Other chronic pain; I25.10 Atherosclerotic heart disease of native coronary artery without angina pectoris; Z95.5 Presence of coronary angioplasty implant and graft; Z79.899 Other long term (current) drug therapy
CPT/HCPCS: 64493; 64494 ×2; J1030; J3010; J2795

== ENCOUNTER → 2023-10-11 | Outpatient (CLI) | payer MEDICARE ==
[2023-10-11 14:01] VITALS: BP 148/76; PULSE 89; RESP 16; TEMP 97.4
--- NOTE | 2023-10-11 14:46 | P.PAINPG ---
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 Pt states he experienced 0 % pain relief s/p procedure. Pt states pain level is provoked at 6 /10 in intensity, constant, localized in the R lower lumbar spine where it meets the tailbone, predominantly axial sharp in character w occasional shooting pain towards the R buttocks. Pain is provoked by repositioning. Pain is alleviated by massage weekly x 4 wks in Mar 2023, heat, ice, medications, topical and rest. Oswestry Axial Pain Score of 15. Interventional procedures include R SI x1, R TFESI L5-S1 x1, caudal KATE w lysis x1 Medications include [place], Biofreeze gel REVIEW OF ORGAN SYSTEMS: CONSTITUTIONAL: No fevers or chills. No recent weight loss. NEUROLOGICAL: + numbness and tingling along the distal extremities. No seizure disorders or headaches. MUSCULOSKELETAL: + pain PSYCHIATRIC: Denies current depression or suicidal tho ughts. Physical Examinations : Constitutional : Cooperative , not in acute distress . Neurologic : Cranial nerve II to XII intact. No focal neurological deficits. Psychiatric : alert & oriented x 3. Matching mood & appropriate affect. Judgment & insight intact. Musculoskeletal : Cervical Spine Motor strength in the deltoid and biceps: Normal right side. Normal Left side Motor strength biceps and the wrist extensors: Normal right side . Normal left side Motor strength in the triceps muscle: Normal right side. Normal left side Deep tendon reflexes: Normal at the biceps. Normal at Brachioradialis. Normal at triceps Vertebral body tenderness to deep palpation over Cervical facet loading test: positive bilaterally Spurling test: positive bilaterally Neck distraction test: positive bilaterally Bruce sign: positive bilaterally Lumbar spine Motor strength lower extremities ,thigh and legs 5/5 Right side , 5/5 Left side Deep tendon reflexes : Normal Knee Jerk. Normal Ankle Jerk Vertebral body tenderness L5 Gabriel Test positive Lumbar facet Loading Test: positive Right / positive Left Range of motion of the lumbar spine Flexion 30 degrees, extension 10 degrees Straight Leg Raise test: Left/ Right positive at degree Renetta test: positive right / positive left. Severe tenderness over the Sacroiliac j oint on the Right / Left sides Gaenslen test: positive on R Seated flexion test: positive bilaterally. Sacral spine : Tenderness over the Sacroiliac joint: right side / left side Range of motion: Flexion of the lumbar spine <60 degrees Range of motion: Extension of the lumbar spine <20 degrees Gaenslen's Test on R Renetta test: positive right side / left side R positive Thigh Thrust Test Sacral Thrust Test Imaging: MRI of the lumbar spine reviewed Assessment/ Plan : R Sacroiliitis, Post laminectomy syndrome, lumbar spondylosis with lumbar facet arthropathy, Lumbar stenosis Recommendation of follow up for [facility] Trial w Dr Badillo. Information provided. All questions answered. PQRS Narrative: Smoking Status Former smoker Hx Alcohol Use (MH) No Home Medications: Ambulatory Orders cycloSPORINE [Restasis] 1 drop BOTH EYES BID 03/04/15 hydrALAZINE HCL [Apresoline] 50 mg PO BID 01/22/16 HYDROcodone/APAP 7.5-325MG [[place] 7.5-325] 1 tab PO Q12H PRN 07/18/21 timoloL maleate [timoloL maleate 0.5% Gel] 1 drop BOTH EYES DAILY 07/18/21 diazePAM [Valium] 5 mg PO DAILY PRN 1 Days #2 tab 07/15/23 Controlled Substance Measures - Controlled Substance Measures Is patient prescribed a controlled substance at discharge?: No
== END ==
LOC: PNWHC3 12:53
PROVIDERS: ATTEND Specialist
DX: G89.4 Chronic pain syndrome (principal); M96.1 Postlaminectomy syndrome, not elsewhere classified; M47.26 Other spondylosis with radiculopathy, lumbar region; M48.061 Spinal stenosis, lumbar region without neurogenic claudication; M46.1 Sacroiliitis, not elsewhere classified; Z87.891 Personal history of nicotine dependence
CPT/HCPCS: 99211

== ENCOUNTER 2024-10-09 07:10 | Day surgery (SDC) | payer MEDICARE ==
[~2024-10-09 07:10] MED LIST changes: +ALPRAZolam 0.25 MG TAB PO PRN; +ALPRAZolam 0.5 MG TAB PO PRN; -LACTATED RINGERS 1,000 ML IV SCH; +NITROGLYCERIN SL TABS 0.4 MG TAB SUBLINGUAL PRN
[2024-10-09 07:52] LABS: Basophils % (A) 1 %; Eosinophils # (A) 0.1 k/uL (0-0.7); Eosinophils % (A) 3 %; HCT 37.6 % (39.0-53.0); HGB 12.3 gm/dL (13.0-17.5); Lymphocytes # (A) 1.2 k/uL (1.0-4.8); Lymphocytes % (A) 21 %; MCH 28.7 pg (25.0-35.0); MCHC 32.8 g/dL (31.0-37.0); MCV 87.6 fL (80.0-100.0); Mean Platelet Volume 8.3; Monocytes # (A) 0.5 k/uL (0-1.0); Monocytes % (A) 9 %; Neutrophils # (A) 3.5 k/uL (1.3-7.7); Neutrophils % (A) 64 %; Platelet Count 166 k/uL (150-450); RBC 4.29 m/uL (4.30-5.90); RDW 14.5 % (11.5-15.5); WBC 5.4 k/uL (3.8-10.6)
[2024-10-09 08:00] LABS: African American GFR (CKD) 75 (>60 ml/min/1.73 sqM); Anion Gap 2 mmol/L; Blood Urea Nitrogen 25 mg/dL (9-20); Calcium 9.4 mg/dL (8.4-10.2); Carbon Dioxide 25 mmol/L (22-30); Chloride 111 mmol/L (98-107); Glucose 125 mg/dL (74-99); Non-African American GFR(CKD) 65 (>60 ml/min/1.73 sqM); Potassium 4.4 mmol/L (3.5-5.1); Sodium 138 mmol/L (137-145)
[2024-10-09] MEDS: SODIUM CHLORIDE 0.9% 1,000 ML in EMPTY BAG 1 BAG IV SCH ×2 (08:16→11:10)
[2024-10-09] MEDS: IV FLUID CONTINUATION 1,000 ML IV ONE (08:19)
[2024-10-09] MEDS: LIDOCAINE 1% INJ 10MG/ML (20 ML MDV) SQ ONE (09:50)
[2024-10-09] MEDS: MIDAZOLAM 2 MG/2 ML VIAL IVP ONE (09:50)
[2024-10-09] MEDS: fentaNYL (PF) 50 MCG/ML 2 ML AMP IVP ONE (09:50)
[2024-10-09] MEDS: HEPARIN SODIUM 1,000 UN/ML (10ML VL) IVP ONE ×2 (10:14→10:32)
[2024-10-09] MEDS: CLOPIDOGREL 75 MG TAB PO ONE (10:19)
[2024-10-09] MEDS: NITROGLYCERIN 1000MCG/10ML SYRINGE INTRACORON ONE ×2 (10:19→10:24)
[2024-10-09] MEDS ORDERED: MAG HYDROX/AL HYDROX/SIMETH 30 ML CUP PO PRN (10:28)
[2024-10-09] MEDS ORDERED: HYDROcodone/APAP 7.5-325MG 1 EACH TAB PO PRN (10:28)
[2024-10-09] MEDS ORDERED: RX INFO: IV CONTRAST WAS GIVEN 1 EACH MISC MISCELLANE PRN (10:28)
[2024-10-09] MEDS ORDERED: ATROPINE SULFATE 0.1 MG/ML 10ML SYRINGE IV PRN (10:28)
[2024-10-09] MEDS ORDERED: NITROGLYCERIN SL TABS 0.4 MG TAB SUBLINGUAL PRN (10:28)
[2024-10-09] MEDS: HEPARIN SODIUM,PORCINE 10,000 UNIT in SODIUM CHLORIDE 0.9% 1,000 ML IRRIGATION ONE (10:33)
[2024-10-09] MEDS: IOPAMIDOL-370 100ML BTL INJ ONE (10:33)
[2024-10-09] MEDS: HEPARIN SODIUM,PORCINE (1 ML) 2,500 UNIT in SODIUM CHLORIDE 0.9% 250 ML IRRIGATION ONE (10:33)
--- NOTE | 2024-10-09 10:37 | P.PCN ---
Date of Procedure: 10/09/24 Operative Findings: CARDIAC CATHETERIZATION AND PERCUTANEOUS CORONARY INTERVENTION PERFORMING PHYSICIAN: Suresh Yu MD, [facility] PROCEDURE PERFORMED: 1. Selective right and left coronary angiogram and TEJADA to LAD angiogram and SVG to ramus intermedius angiogram and SVG to OM 2 angiogram 2. Left heart catheterization 3. Successful stenting of OM1 using 2.25 x 18 Xience FREIDA with an excellent angiographic results adjunctive use of IVUS 4. Ultrasound-guided access of the right common femoral artery and selective right common femoral artery angiogram INDICATION: Chest discomfort concerning for unstable angina COMPLICATION: None APPROACH: Right common femoral artery LEVEL OF SEDATION: Moderate with the sedation time off 37 minutes PROCEDURE DESCRIPTION: After obtaining informed consent the patient was brought to the cardiac Territory Service Representative with right common femoral artery was cannulated using micropuncture technique under ultrasound guidance a micropuncture wire passed easily then I placed a 6 [place] 11 cm sheath at the right common femoral artery with selective left and right coronary angiogram performed using JL 4 and JR4 catheter. All bypasses angiogram performed using the JR4 catheter. After that we did left heart catheterization also using the JR4 catheter. After that I decided to intervene on the OM1. Anticoagulation was initiated using heparin with continuous ACT monitoring and subsequently I engaged the left main using JL 4 guiding catheter with I did wired the OM1 using a run-through wire. Predilatation was performed using 2 mm balloon but before that IVUS showed a diameter around 2 to 2.5 mm. I did stent OM1 using 2.25 x 18 mm stent which was postdilated using 2.5 mm balloon which was noncompliant balloon with an excellent angiographic results and the procedure was completed with no complication SELECTIVE CORONARY ANGIOGRAM: The right coronary artery: Large-caliber vessel and a dominant vessel with no evidence of high-grade stenosis Left main: Has a lesion appears to be in the range of 40% The left circumflex: Has ostial tight lesion appears to be in the range of 80% The left anterior descending artery: Is occluded in the proximal portion The TEJADA to LAD is patent SVG to ramus intermedius is patent SVG to OM 2 is patent HEMODYNAMICS: The LVEDP was 10 mmHg with no significant gradient across aortic valve CONCLUSION: Occluded LAD. Patent TEJADA to LAD Occluded ramus intermedius. 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 I did PCI of OM1 Critical disease involving the ostial left circumflex with patent SVG to OM 2 no evidence of high-grade stenosis involving the RCA POSTPROCEDURE MANAGEMENT: 1. Dual antiplatelet therapy using aspirin and Plavix for at least 6 month 2. Aggressive cholesterol control 3. Follow-up with the patient
[2024-10-09] MEDS: ASPIRIN 325 MG TAB PO STA (11:10)
[2024-10-09] MEDS: cycloSPORINE 0.05% OPHTH 0.4 ML DROPERETTE BOTH EYES SCH (20:16)
[2024-10-09] MEDS: ZOLPIDEM 5 MG TAB PO PRN (20:16)
[2024-10-10] MEDS: PANTOPRAZOLE 40 MG TABLET PO SCH (06:40)
[2024-10-10] MEDS: CLOPIDOGREL 75 MG TAB PO SCH (07:48)
[2024-10-10 07:57] VITALS: RESP 16; TEMP 98.5
[2024-10-10] MEDS: LOSARTAN-HCTZ 50-12.5 MG 1 EACH TAB PO SCH (08:00)
[2024-10-10] MEDS: ISOSORBIDE MONONITRATE ER 30 MG TAB.ER.24H PO SCH (08:00)
[2024-10-10] MEDS: TIMOLOL 0.5% OPHTH DROPS 5 ML BTL BOTH EYES SCH (08:00)
[2024-10-10 08:14] LABS: African American GFR (CKD) 77 (>60 ml/min/1.73 sqM); Non-African American GFR(CKD) 67 (>60 ml/min/1.73 sqM)
[2024-10-10 11:23] VITALS: BP 130/75; PULSE 74
--- NOTE | 2024-10-10 13:29 | P.DS ---
Providers Attending physician: Suresh Yu Consults: 10/09/24 10:28 Consult Physician Routine Consulting Provider: [facility] Consult Reason/Comments: Post Interventional Patient Do you want consulting provider notified?: Already Contacted Primary care physician: Jeb Reagan [facility] Course: The patient is a pleasant 84-year-old gentleman who underwent yesterday heart catheterization and PCI of the LCx. He was seen and evaluated this morning. The right groin is soft and nontender with no bruises The patient is asymptomatic and hemodynamically stable The patient is going to be discharged home on dual antiplatelet therapy and I will follow-up with the patient next week in the office Plan - Discharge Summary Discharge Rx Participant: Yes New Discharge Prescriptions: New Clopidogrel [Plavix] 75 mg PO DAILY #90 tab Continue cycloSPORINE [Restasis] 1 drop BOTH EYES BID timoloL maleate [timoloL maleate 0.5% Gel] 1 drop BOTH EYES DAILY Pantoprazole [Protonix] 40 mg PO DAILY Isosorbide Mononitrate ER [Imdur] 30 mg PO DAILY HYDROcodone/APAP 7.5-325MG [[place] 7.5-325] 1 tab PO Q12H PRN PRN Reason: Pain Losartan-Hctz 50-12.5 mg [Hyzaar 50-12.5] 1 tab PO DAILY Discharge Medication List cycloSPORINE [Restasis] 1 drop BOTH EYES BID 03/04/15 [History] HYDROcodone/APAP 7.5-325MG [[place] 7.5-325] 1 tab PO Q12H PRN 07/18/21 [History] timoloL maleate [timoloL maleate 0.5% Gel] 1 drop BOTH EYES DAILY 07/18/21 [History] Isosorbide Mononitrate ER [Imdur] 30 mg PO DAILY 10/06/24 [History] Losartan-Hctz 50-12.5 mg [Hyzaar 50-12.5] 1 tab PO DAILY 10/06/24 [History] Pantoprazole [Protonix] 40 mg PO DAILY 10/06/24 [History] Clopidogrel [Plavix] 75 mg PO DAILY #90 tab 10/10/24 [Rx] Follow up Appointment(s)/Referral(s): Suresh Yu MD [STAFF PHYSICIAN] - 10/20/24 4:45 pm Patient Instructions/Handouts: *[facility] - After Heart Catheterization - Sales Representative Cash Registers Instructions, Moderate Sedation (DC), Fall Prevention (DC), After Radial Heart Catheterization (GEN) Activity/Diet/Wound Care/Special Instructions: NO DRIVING FOR THREE DAYS OK TO SHOWER TOMORROW AFTER 24 HOURS WITH DRESSING ON. REMOVE DRESSING BEFORE SHOWER. NO NEED TO REAPPLY. NO POWDERS/OINTMENTS OR LOTIONS ON PUNCTURE SITE TO PREVENT INFECTION SIGNS OF INFECTION IE:FEVER, RASH, UNUSUAL DRAINAGE OR SWELLING/HARD KNOT CONTACT DOCTOR TO BE EVALUATED. AVOID PUSHING, PULLING, LIFTING MORE THAN 5 LBS FOR FIVE DAYS. FALL PRECAUTIONS FOR 24 HOURS. IF PUNCTURE BLEEDS, APPLY FIRM PRESSURE AND GO TO ER. DO NOT DRIVE SELF. MEDICATIONS PER CARDIOLOGY. Discharge Disposition: HOME SELF-CARE
== END 2024-10-10 11:54 | disposition home or self-care (01) ==
LOC: CATHCVL 07:10 → 3SCARD 10:28 → CATHCVL 10-10 11:54
PROVIDERS: ATTEND Internal Medicine Interventional Cardiology
DX: I25.110 Atherosclerotic heart disease of native coronary artery with unstable angina pectoris (principal); E78.5 Hyperlipidemia, unspecified; I10 Essential (primary) hypertension; I38 Endocarditis, valve unspecified; Z79.02 Long term (current) use of antithrombotics/antiplatelets; Z79.899 Other long term (current) drug therapy; Z78.9 Other specified health status; Z79.82 Long term (current) use of aspirin
CPT/HCPCS: 92978; 93459; 80048; 82565; 85025; 99152; 99153; C9600; J2250; J1644 ×3; J2003; J3010; Q9967; J2305

== ENCOUNTER → 2024-11-11 | Outpatient (CLI) | payer MEDICARE ==
--- NOTE | 2024-11-11 09:35 | MR ---
EXAMINATION TYPE: MR Prostate wo/w con DATE OF EXAM: 11/11/2024 9:16 AM COMPARISON: None. CLINICAL INDICATION: Male, 84 years old with history of C61 PROSTATE CANCER; Prostate cancer. TECHNIQUE: Multi-planar, multi-sequence imaging of the pelvis is performed prior to and following the uncomplicated administration of bolus intravenous gadolinium. IV Contrast: 7 mL Gadobutrol Interpretive Criteria: PI-RADS v2.1 SERUM PSA: 03-14-24 = 6.48 09-08-23 = 7.84 SURGICAL PATHOLOGY: 03/23/2023, negative. FINDINGS: Prostatic dimensions: 5.9 x 4.1 x 5.1 cm. Ellipsoid Volume:80.35 (PSA density=0.08 ng/mL/mL) CENTRAL GLAND (Central and Transition Zones/CZ+TZ): Multiple bilateral, heterogenous appearing hypertrophic stromal nodules, without suspicious lesion. M edian lobe hypertrophy with protrusion into the base of the bladder. (PI-RADS 2) PERIPHERAL ZONE (PZ): Bilateral linear, indistinct wedgelike areas of low ADC, and low T2 signal, No evidence of masslike a bnormality, or localized perfusional hypervascularity, to further suggest a focus of clinically signi ficant prostate cancer. (PI-RADS 2) SEMINAL VESICLES (SV): Symmetric and unremarkable. PERIPROSTATIC TISSUES: Unremarkable. LYMPH NODES: No enlarged pelvic lymph node. REMAINING PELVIS: Bladder wall is within normal limits given distention. No abnormal free or organized intrapelvic fluid collection. No pathologic bowel dilation or mural thickening. No hernia visualized Small left hydrocele. OSSEOUS STRUCTURES: No suspicious osseous abnormality. IMPRESSION: 1. No specific features for high-risk prostate cancer. Maximum PI-RADS score: 2. 2. Substantial BPH, estimated gland volume 80.35 mL. 3. No suspicious osseous lesion. No lymphadenopathy. No evidence of prostate adenocarcinoma involving the periprostatic tissues. [facility], , 11/11/2024 9:32 AM
== END | disposition home or self-care (01) ==
LOC: RADMRIMAIN 08:11
PROVIDERS: ATTEND Urology
DX: C61 Malignant neoplasm of prostate (principal); N40.0 Benign prostatic hyperplasia without lower urinary tract symptoms
CPT/HCPCS: 72197; A9585

== ENCOUNTER 2025-02-27 08:29 | Day surgery (SDC) | payer MEDICARE ==
[2025-02-26 12:02] VITALS: BMI 23.5
[~2025-02-27 08:29] MED LIST changes: -ALPRAZolam 0.25 MG TAB PO PRN; -ALPRAZolam 0.5 MG TAB PO PRN; +LIDOCAINE 1% (10MG/ML) FOR IV START INTRADERMA PRN; -NITROGLYCERIN SL TABS 0.4 MG TAB SUBLINGUAL PRN
[2025-02-27 08:54] VITALS: RESP 16; TEMP 98
[2025-02-27] MEDS: LACTATED RINGERS 1,000 ML IV SCH (09:01)
[2025-02-27] MEDS: IV FLUID CONTINUATION 1,000 ML IV ONE ×2 (09:02→09:11)
[2025-02-27] MEDS ORDERED: LIDOCAINE 1% INJ 10MG/ML (20 ML MDV) ONE (09:42)
[2025-02-27] MEDS ORDERED: PROPOFOL 10 MG/ML 20 ML VIAL IV ONE (09:42)
--- NOTE | 2025-02-27 10:00 | P.PCN ---
Date of Procedure: 02/27/25 Procedure(s) Performed: BRIEF HISTORY: Patient is a 84-year-old, pleasant, -[place] male scheduled an upper endoscopy as a part of evaluation of chronic intermittent epigastric pain of several years duration. He has remote history of peptic ulcer disease. PROCEDURE PERFORMED: Esophagogastroduodenoscopy with biopsy. PREOPERATIVE DIAGNOSIS: Chronic epigastric pain and prior history of peptic ulcer disease. IV sedation per anesthesia. PROCEDURE: After informed consent was obtained, the patient was brought into the endoscopy unit. IV sedation was administered by Anesthesia under continuous monitoring. Initially the Olympus GIF-140 video endoscope was inserted into the mouth. Esophagus intubated without any difficulty. It was gradually advanced into the stomach and duodenum and carefully examined. The bulb and the second part of the duodenum appeared normal. The scope at this time was withdrawn to the stomach, adequately insufflated with air, and upon careful examination, mucosa of the antrum, and mild gastritis and biopsies were done from this area. Mucosa body, cardia and the fundus appeared normal. The scope was then withdrawn into the esophagus. The GE junction was located at 39 cm from the incisors. The esophagus appeared normal. There were no erosions or ulcerations seen and the patient tolerated the procedure well. IMPRESSION: 1. Mild antral gastritis. 2. No evidence of esophagitis or peptic ulcer disease. RECOMMENDATIONS: The findings of this examination were discussed with the patient as well as his family. He was advised to follow with the biopsy results. Continue with Protonix 40 mg daily and follow antireflux measures.
[2025-02-27 10:22] VITALS: BP 117/64; PULSE 51
== END 2025-02-27 10:50 | disposition home or self-care (01) ==
LOC: ORWHC2ENDO 08:29
PROVIDERS: ATTEND Internal Medicine Gastroenterology
DX: K29.50 Unspecified chronic gastritis without bleeding (principal); K21.9 Gastro-esophageal reflux disease without esophagitis
CPT/HCPCS: 43239; J2003; J2704; 88305